=== PATIENT | female | born 2000 | race Caucasian/White ===

== ENCOUNTER 2023-06-25 18:11 | Emergency (ER) | payer SELFPAY ==
[~2023-06-25] VITALS: Ht 175.3 cm; Wt 59.0 kg
[2023-06-25 18:14] VITALS: O2SAT 100
[2023-06-25] MEDS ORDERED: SULF1TAB48 MT (20:08)
[2023-06-25] MEDS ORDERED: MUPI1OIN4 TP (20:08)
[2023-06-25 20:21] VITALS: BP 117/74; PULSE 87; RESP 14; TEMP 98.2
[2023-06-25] MEDS: TETANUS, DIPHTHERIA, PERTUSSIS VAC/PF 0.5ML (>10YR OLD) IM ONE (20:31)
== END 2023-06-25 20:32 | disposition home or self-care (01) ==
LOC: ER 18:11
DX: S61.213A Laceration without foreign body of left middle finger without damage to nail, initial encounter (principal); Z88.8 Allergy status to other drugs, medicaments and biological substances; W45.8XXA Other foreign body or object entering through skin, initial encounter; Y93.89 Activity, other specified; Y92.89 Other specified places as the place of occurrence of the external cause; Y99.8 Other external cause status
CPT/HCPCS: 81025; 90715; 90471; 99283; Z7610